=== PATIENT | male | born 1955 | race Caucasian/White ===

== ENCOUNTER → 2020-11-06 | Day surgery (SDC) | payer OTHER, MEDICARE ==
[~2020-11-06] MED LIST: AMIODARONE HCL200 MG PO; ASPIRIN CHEWABL81 MG PO; ASPIRIN EC81 MG PO; ASPIRIN325 MG PO; ATROVENT HFA12.9 GM INH; AUGMENTIN 875-1 EACH PO; BACLOFEN 10MG T10 MG PO; CARDIZEM CD180 MG PO; CELEBREX50 MG PO; CELECOXIB200 MG PO; CERTAGEN1 EACH PO; COLACE100 MG PO; DIGITEK125 MCG PO; DITROPAN5 MG PO; ELIQUIS2.5 MG PO; GABAPENTIN300 MG PO; LEVAQUIN750 MG PO; LIDOCAINE 5% P1 EACH TOP; LOPRESSOR25 MG PO; MUCINEX 600MG600 MG PO; MYRBETRIQ50 MG PO; NEURONTIN100 MG PO; NEURONTIN300 MG PO; PANTOPRAZOLE SO40 MG PO; PERCOCET 10-321 EACH PO; PERCOCET 10/321 EACH PO; PERCOCET 5-3251 EACH PO; PROVENTIL HFA6.7 GM INH; REMOVE EXT; ROBITUSSIN100 MG/5 M PO; SAW PALMETTO C1 EACH PO; TESSALON PERLE100 MG PO; ZANTAC150 MG PO
[2020-11-06 13:42] LABS: HCT 51.8 % (42.0-52.0); HGB 16.5 g/dl (13.2-18.0); MCH 31.2 pg (25.0-31.0); MCHC 31.9 g/dL (32.0-36.0); MCV 97.9 fL (78.0-100.0); RBC 5.29 M/uL (4.70-6.00); RDW 13.5 % (11.5-14.0)
[2020-11-06 14:37] LABS: ALBUMIN 3.5 g/dL (3.4-5.0); BILIRUBIN - TOTAL 0.5 mg/dL (0.2-1.0); BUN/CREAT RATIO (CALC) 13.6 RATIO; CREATININE 1.03 mg/dL (0.67-1.17); POTASSIUM 4.1 mmol/L (3.5-5.1); TOTAL PROTEIN 6.5 g/dL (6.4-8.2)
== END | disposition home or self-care (01) ==
LOC: FAS 10:25
PROVIDERS: Orthopaedic Surgery
DX: S83.232A Complex tear of medial meniscus, current injury, left knee, initial encounter (principal); M17.12 Unilateral primary osteoarthritis, left knee; K21.9 Gastro-esophageal reflux disease without esophagitis; F32.9 Major depressive disorder, single episode, unspecified; Z98.890 Other specified postprocedural states; I51.7 Cardiomegaly; Z20.822 Contact with and (suspected) exposure to COVID-19; X58.XXXA Exposure to other specified factors, initial encounter
CPT/HCPCS: 36415; 71045; 80053; 93005; J2704; J3010; J7120

== ENCOUNTER 2021-10-26 10:31 | Day surgery (SDCO) | payer OTHER, MEDICARE ==
[~2021-10-26] VITALS: Ht 185.4 cm; Wt 122.6 kg
[2021-10-26 12:09] LABS: BILIRUBIN NEGATIVE (NEGATIVE); BLOOD 3+ Ery/uL (NEGATIVE); CLARITY CLEAR (CLEAR); COLOR YELLOW (YELLOW); GLUCOSE (U) NORMAL (NORMAL); LEUKOCYTES 1+ Leu/uL (NEGATIVE); NITRITE POSITIVE (NEGATIVE); PROTEIN NEGATIVE (NEGATIVE); UROBILINOGEN 0.2 mg/dL (0.2-1.0)
[2021-10-26 12:09] LABS: BASOPHIL 0.5 % (0-2); EOSINOPHIL 0.4 % (0-7); HGB 16.9 g/dl (13.2-18.0); LYMPHOCYTE 3.2 % (15-48); MCH 31.4 pg (25.0-31.0); MCHC 31.9 g/dL (32.0-36.0); MCV 98.5 fL (78.0-100.0); MONOCYTE 1.6 % (0-12); MPV 9.6 fL (6.0-9.5); NEUTROPHIL 93.4 % (41-80); NRBC 0; PLT 203 K/uL (150-400); RBC 5.38 M/uL (4.70-6.00); RDW 12.9 % (11.5-14.0)
[2021-10-26 12:15] LABS: WBC 9.3 K/uL (4.0-10.5)
[2021-10-26 12:30] LABS: ALBUMIN 3.8 g/dL (3.4-5.0); BILIRUBIN - TOTAL 0.7 mg/dL (0.2-1.0); BUN/CREAT RATIO (CALC) 10.7 RATIO; CREATININE 1.4 mg/dL (0.67-1.17); GLOBULIN (CALCULATION) 2.9 g/dL; POTASSIUM 4.3 mmol/L (3.5-5.1); TOTAL PROTEIN 6.7 g/dL (6.4-8.2)
[2021-10-26 12:40] LABS: BACTERIA 4+
[2021-10-26] MEDS ORDERED: PEPCID AC20 MG PO (18:33)
[2021-10-27 07:13] LABS: BASOPHIL 0.6 % (0-2); EOSINOPHIL 0.3 % (0-7); HCT 47.2 % (42.0-52.0); HGB 15.2 g/dl (13.2-18.0); LYMPHOCYTE 4.8 % (15-48); MCH 31.7 pg (25.0-31.0); MCHC 32.2 g/dL (32.0-36.0); MCV 98.3 fL (78.0-100.0); MONOCYTE 5.6 % (0-12); MPV 9.5 fL (6.0-9.5); NEUTROPHIL 88.1 % (41-80); NRBC 0; PLT 142 K/uL (150-400); RDW 13.2 % (11.5-14.0); WBC 14.5 K/uL (4.0-10.5)
[2021-10-27 08:33] LABS: CREATININE 1.21 mg/dL (0.67-1.17); POTASSIUM 4.1 mmol/L (3.5-5.1)
[2021-10-27] MEDS ORDERED: MAG-OXIDE 400M400 MG PO (10:57)
[2021-10-27] MEDS ORDERED: FLORANEX TABLE1 EACH PO (10:57)
[2021-10-27] MEDS ORDERED: LEVAQUIN750 MG PO (11:10)
[2021-10-28 06:10] LABS: BASOPHIL 0.6 % (0-2); EOSINOPHIL 1.8 % (0-7); HGB 16.7 g/dl (13.2-18.0); MCH 31.5 pg (25.0-31.0); MCHC 32.1 g/dL (32.0-36.0); MCV 98.1 fL (78.0-100.0); MONOCYTE 8.2 % (0-12); MPV 10.2 fL (6.0-9.5); NEUTROPHIL 77.9 % (41-80); NRBC 0; PLT 164 K/uL (150-400); RDW 13.2 % (11.5-14.0); WBC 12.8 K/uL (4.0-10.5)
[2021-10-28 06:54] LABS: CREATININE 1.17 mg/dL (0.67-1.17)
[2021-10-28] MEDS ORDERED: CARDIZEM CD240 MG PO (08:43)
[2021-10-28] MEDS ORDERED: MACROBID100 MG PO (14:24)
== END 2021-10-28 11:50 | disposition home or self-care (01) ==
LOC: FER 10:31 → FICU 15:58
PROVIDERS: Emergency Medicine; ADMIT Family Medicine
DX: I48.0 Paroxysmal atrial fibrillation (principal); I48.92 Unspecified atrial flutter; N30.01 Acute cystitis with hematuria; N40.0 Benign prostatic hyperplasia without lower urinary tract symptoms; R07.9 Chest pain, unspecified; N17.9 Acute kidney failure, unspecified; I12.9 Hypertensive chronic kidney disease with stage 1 through stage 4 chronic kidney disease, or unspecified chronic kidney disease; N18.2 Chronic kidney disease, stage 2 (mild); R94.31 Abnormal electrocardiogram [ECG] [EKG]; G47.33 Obstructive sleep apnea (adult) (pediatric); I73.9 Peripheral vascular disease, unspecified; K21.9 Gastro-esophageal reflux disease without esophagitis; G89.4 Chronic pain syndrome; Z79.01 Long term (current) use of anticoagulants; Z79.899 Other long term (current) drug therapy; Z20.822 Contact with and (suspected) exposure to COVID-19
CPT/HCPCS: 36415; 71045; 80048; 80053; 81001; 83036; 83735; 83880; 84443; 84484; 85025; 87076; 87088; 87186; 93005; 94010; G0378; J1956; J3475; J7030; Q9967; U0002

== ENCOUNTER 2021-11-20 06:38 | Emergency (ER) | payer OTHER, MEDICARE ==
[~2021-11-20 06:38] MED LIST changes: +CARDIZEM CD240 MG PO; +FLORANEX TABLE1 EACH PO; +MACROBID100 MG PO; +MAG-OXIDE 400M400 MG PO; +PEPCID AC20 MG PO
[2021-11-20 08:16] LABS: BASOPHIL 1.5 % (0-2); EOSINOPHIL 4.4 % (0-7); HCT 48.4 % (42.0-52.0); HGB 15.7 g/dl (13.2-18.0); LYMPHOCYTE 19.9 % (15-48); MCH 31.8 pg (25.0-31.0); MCHC 32.4 g/dL (32.0-36.0); MONOCYTE 9.7 % (0-12); NEUTROPHIL 62.2 % (41-80); NRBC 0; PLT 219 K/uL (150-400); RBC 4.94 M/uL (4.70-6.00); RDW 13.2 % (11.5-14.0)
[2021-11-20 08:20] LABS: INR 1.11 (0.9-1.2); PROTHROMBIN TIME 13.7 SECONDS (11.8-13.4); PTT 26.7 SECONDS (24.4-34.7)
[2021-11-20 09:06] LABS: ALBUMIN 3.5 g/dL (3.4-5.0); BILIRUBIN - TOTAL 0.3 mg/dL (0.2-1.0); BUN/CREAT RATIO (CALC) 14.6 RATIO; CREATININE 1.03 mg/dL (0.67-1.17); FT4 (FREE T4) 1.7 ng/dL (0.76-1.46); MAGNESIUM 2.3 mg/dL (1.8-2.4); POTASSIUM 4.5 mmol/L (3.5-5.1); TOTAL PROTEIN 6.5 g/dL (6.4-8.2)
[2021-11-20] MEDS ORDERED: ANTIVERT25 MG PO (09:50)
== END 2021-11-20 10:43 | disposition home or self-care (01) ==
LOC: FER 06:38
PROVIDERS: Emergency Medicine
DX: R42 Dizziness and giddiness (principal); Z20.822 Contact with and (suspected) exposure to COVID-19
CPT/HCPCS: 36415; 70551; 71045; 80053; 83735; 84439; 84443; 84484; 85025; 85610; 85730; 93005; U0002